=== PATIENT | female | born 1965 | race African-American/Black ===

== ENCOUNTER 2024-07-29 20:58 | Emergency (ER) | payer OTHER ==
[~2024-07-29] VITALS: Ht 167.6 cm; Wt 149.7 kg
[2024-07-29] MEDS ORDERED: LIDOCAINE 5% (PATCH) 1 EA PATCH TP ONE (23:16)
[2024-07-29] MEDS ORDERED: NAPROXEN 250 MG TABLET ONE (23:17)
[2024-07-29] MEDS ORDERED: CYCLOBENZAPRINE 10 MG TABLET ONE (23:17)
[2024-07-29] MEDS ORDERED: ACETAMINOPHEN ES 500 MG TABLET ONE (23:17)
[2024-07-29] MEDS: NAPROXEN 250 MG TABLET PO ONE (23:24)
[2024-07-29] MEDS: ACETAMINOPHEN ES 500 MG TABLET PO ONE (23:24)
[2024-07-29] MEDS: CYCLOBENZAPRINE 10 MG TABLET PO ONE (23:24)
[2024-07-29] MEDS: LIDOCAINE 5% (PATCH) 1 EA PATCH TP SCH (23:24)
[2024-07-29 23:30] LABS: APPEARANCE,URINE SLIGHTLY CLOUDY (CLEAR); BILIRUBIN,URINE NEGATIVE (NEGATIVE); BLOOD, URINE NEGATIVE Ery/uL (NEGATIVE); COLOR,URINE YELLOW (YELLOW); KETONES,URINE NEGATIVE (NEGATIVE); LEUKOCYTE ESTERASE ,URINE NEGATIVE (NEGATIVE); NITRITE, URINE POSITIVE (NEGATIVE); PH,URINE 6.5 (5.0-8.0); PROTEIN,URINE NEGATIVE (NEGATIVE); UGLUCOSE NEGATIVE (NEGATIVE); UROBILINOGEN,URINE 0.2 EU/dL (0.2)
[2024-07-30 00:02] LABS: ADD URINE CULTURE YES; BACTERIA,URINE Many /HPF (None Seen); WBC,URINE 0-2 /HPF (0-3)
[2024-07-30] MEDS ORDERED: CYCL10TA9 PO (00:45)
[2024-07-30] MEDS ORDERED: NAPR-1009 PO (00:45)
[2024-07-30] MEDS ORDERED: CEPH500T PO (00:45)
[2024-07-30] MEDS ORDERED: CEPHALEXIN MONOHYDRATE 500 MG CAPSULE PO ONE (00:59)
[2024-07-30] MEDS: CEPHALEXIN MONOHYDRATE 500 MG CAPSULE PO ONE (01:00)
[2024-07-30 01:26] VITALS: BP 151/89; TEMP 98.1; O2SAT 98
== END 2024-07-30 01:27 | disposition home or self-care (01) ==
LOC: ER 20:58
DX: N39.0 Urinary tract infection, site not specified (principal); M54.9 Dorsalgia, unspecified; E11.9 Type 2 diabetes mellitus without complications; I10 Essential (primary) hypertension
CPT/HCPCS: 81001; 87086-TC